=== PATIENT | female | born 1950 | race Caucasian/White ===

== ENCOUNTER 2018-02-06 12:00 | Emergency (ER) | payer OTHER ==
[~2018-02-06] VITALS: Ht 154.9 cm; Wt 51.7 kg
[2018-02-06 12:43] LABS: BASOPHILS ABSOLUTE AUTO 0.04 K/mm3 (0.00-0.23); BASOPHILS PERCENT AUTO 1 % (0-2); EOSINOPHILS ABSOLUTE AUTO 0.35 K/mm3 (0.00-0.68); EOSINOPHILS PERCENT AUTO 5 % (0-6); Hematocrit 40.3 % (33.0-51.0); Hemoglobin 12.9 g/dL (11.5-16.0); IMMATURE GRAN ABSOLUTE AUTO 0.03 K/mm3 (0.00-0.10); IMMATURE GRAN PERCENT AUTO 0 % (0-1); LYMPHOCYTES ABSOLUTE AUTO 2.41 K/mm3 (0.84-5.20); LYMPHOCYTES PERCENT AUTO 32 % (21-46); MONOCYTES ABSOLUTE AUTO 0.61 K/mm3 (0.16-1.47); MONOCYTES PERCENT AUTO 8 % (4-13); Mean Corpuscular HGB 30.2 pg (26.0-34.0); Mean Corpuscular Volume 94 fL (80-100); NEUTROPHILS ABSOLUTE AUTO 4.12 K/mm3 (1.96-9.15); NEUTROPHILS PERCENT AUTO 55 % (41-73); Platelet Count 307 K/mm3 (150-400); RDW Coefficient Variation 12.8 % (11.7-14.2); RDW Standard Deviation 44.1 fL (35.1-46.3); Red Blood Cell Count 4.27 M/mm3 (3.80-5.20); White Blood Cell Count 7.56 K/mm3 (4.00-11.30)
[2018-02-06 12:56] LABS: Albumin/Globulin Ratio 0.8 (0.8-1.8); Bilirubin, Total 0.2 mg/dL (0.1-1.0); Bun/Creatinine Ratio 22.1 (12.0-20.0); Calcium, Blood 8.9 mg/dL (8.5-10.1); Creatinine, Blood 0.99 mg/dL (0.40-1.00); Globulin, Blood 3.8 g/dL (2.2-4.0); Total Protein, Blood 6.8 g/dL (6.4-8.2)
[2018-02-06] MEDS ORDERED: Synthroid/Lev0.05 MG PO (13:05)
[2018-02-06] MEDS ORDERED: MONT10T PO (13:06)
[2018-02-06] MEDS ORDERED: Sudogest30 MG PO (13:07)
[2018-02-06 13:11] LABS: Appearance, Urine Clear (Clear); Bilirubin, Urine Neg (Neg); Blood, Urine Neg (Neg); Color, Urine Yellow (P-Yellow); Glucose Qualitative, Urine Neg (Neg); Ketones, Urine Neg (Neg); Leukocyte Esterase, Urine Neg (Neg); Nitrite, Urine Neg (Neg); Protein, Urine Neg (Neg); Specific Gravity, Urine 1.015 (1.003-1.022); Urobilinogen, Urine NORM (Normal)
== END 2018-02-06 14:17 | disposition home or self-care (01) ==
LOC: ER 12:00
PROVIDERS: Emergency Medicine
DX: K52.9 Noninfective gastroenteritis and colitis, unspecified (principal); Z87.891 Personal history of nicotine dependence; Z88.0 Allergy status to penicillin; Z91.013 Allergy to seafood; Z79.899 Other long term (current) drug therapy
CPT/HCPCS: 36415; 80053; 81003; 82607; 82746; 83516; 83690; 85025; 99283

== ENCOUNTER → 2018-02-07 | Outpatient (CLI) | payer OTHER ==
[~2018-02-07] MED LIST: MONT10T PO; Sudogest30 MG PO; Synthroid/Lev0.05 MG PO
[2018-02-08 11:06] LABS: Adenovirus F 40/41 Not Detected (NOT DETECT); Astrovirus Not Detected (NOT DETECT); Campylobacter Sp Not Detected (NOT DETECT); Cryptosporidium Not Detected (NOT DETECT); Cyclospora Cayetanensis Not Detected (NOT DETECT); E. Coli O157 Not Detected (NOT DETECT); Entamoeba Histolytica Not Detected (NOT DETECT); Enteroaggregative E. coli-EAEC Not Detected (NOT DETECT); Enteropathogenic E. coli-EPEC Not Detected (NOT DETECT); Enterotoxigenic E. coli-ETEC Not Detected (NOT DETECT); Giardia Lamblia Not Detected (NOT DETECT); Norovirus GI/GII Not Detected (NOT DETECT); Plesiomonas Shigelloides Not Detected (NOT DETECT); Rotavirus A Not Detected (NOT DETECT); Salmonella Sp Not Detected (NOT DETECT); Sapovirus Not Detected (NOT DETECT); Shiga Toxin-prod E. coli-STEC Not Detected (NOT DETECT); Shigella/Enteroin E. coli-EIEC Not Detected (NOT DETECT); Vibrio Cholerae Not Detected (NOT DETECT); Vibrio Sp Not Detected (NOT DETECT); Yersinia Enterocolitica Not Detected (NOT DETECT)
== END ==
LOC: LAB 10:55
PROVIDERS: Emergency Medicine
DX: R19.7 Diarrhea, unspecified (principal)
CPT/HCPCS: 87507

== ENCOUNTER → 2019-10-24 | Outpatient (CLI) | payer OTHER ==
[2019-10-28 14:06] LABS: HPV 16 Negative (Negative); HPV 18 Negative (Negative); HPV OTHER HR TYPES Negative (Negative)
== END | disposition home or self-care (01) ==
LOC: LAB SHORT 13:38 → LAB 13:38
PROVIDERS: Obstetrics & Gynecology
DX: Z01.419 Encounter for gynecological examination (general) (routine) without abnormal findings (principal)
CPT/HCPCS: 87624; G0123

== ENCOUNTER → 2021-06-08 | Outpatient (CLI) | payer OTHER | END | disposition home or self-care (01) | LOC: LAB 08:13 → LAB SHORT 08:13 | DX: D22.39 Melanocytic nevi of other parts of face (principal); L57.0 Actinic keratosis | CPT/HCPCS: 88305 ==

== ENCOUNTER 2021-10-03 12:21 | Emergency (ER) | payer OTHER ==
[~2021-10-03] VITALS: Ht 154.9 cm; Wt 53.5 kg
[2021-10-03 13:19] LABS: BASOPHILS ABSOLUTE AUTO 0.06 K/mm3 (0.00-0.23); BASOPHILS PERCENT AUTO 1 % (0-2); EOSINOPHILS ABSOLUTE AUTO 0.19 K/mm3 (0.00-0.68); EOSINOPHILS PERCENT AUTO 2 % (0-6); Hematocrit 40.3 % (33.0-51.0); Hemoglobin 13.1 g/dL (11.5-16.0); IMMATURE GRAN ABSOLUTE AUTO 0.03 K/mm3 (0.00-0.10); IMMATURE GRAN PERCENT AUTO 0 % (0-1); LYMPHOCYTES PERCENT AUTO 29 % (21-46); MONOCYTES ABSOLUTE AUTO 0.65 K/mm3 (0.16-1.47); MONOCYTES PERCENT AUTO 8 % (4-13); Mean Corpuscular HGB 30.3 pg (26.0-34.0); Mean Corpuscular HGB Conc 32.5 g/dL (31.5-36.5); Mean Corpuscular Volume 93 fL (80-100); Mean Platelet Volume 10.2 fL (9.1-12.4); NEUTROPHILS ABSOLUTE AUTO 4.84 K/mm3 (1.96-9.15); NEUTROPHILS PERCENT AUTO 59 % (41-73); Platelet Count 253 K/mm3 (150-400); RDW Coefficient Variation 12.4 % (11.7-14.2); RDW Standard Deviation 42.7 fL (35.1-46.3); Red Blood Cell Count 4.33 M/mm3 (3.80-5.20); White Blood Cell Count 8.17 K/mm3 (4.00-11.30)
[2021-10-03 13:20] LABS: Source, Urine Clean Catch
[2021-10-03 13:32] LABS: Appearance, Urine Clear (Clear); Bilirubin, Urine Neg (Neg); Blood, Urine Neg (Neg); Color, Urine Yellow (P-Yellow); Glucose Qualitative, Urine Neg (Neg); Ketones, Urine Neg (Neg); Leukocyte Esterase, Urine 1+ (Neg); Nitrite, Urine Neg (Neg); Protein, Urine Neg (Neg); Specific Gravity, Urine 1.015 (1.003-1.022); Urobilinogen, Urine NORM (Normal)
[2021-10-03 13:48] LABS: Bacteria Few /hpf; Red Blood Cells, Urine 0-2 /hpf (0-2); Squamous Epithelial Cells Few /hpf (Few); White Blood Cells, Urine 0-2 /hpf (0-5)
[2021-10-03 13:50] LABS: Alanine Aminotransfer (ALT/SGP 21 U/L (12-78); Albumin, Blood 3.5 g/dL (3.4-5.0); Alk Phos 103 U/L (50-136); Anion Gap 5 mmol/L (6-16); Aspartate Aminotrans (AST/SGOT 16 U/L (12-37); Bilirubin, Total 0.3 mg/dL (0.1-1.0); Blood Urea Nitrogen 22 mg/dL (8-24); Bun/Creatinine Ratio 21.8 (12.0-20.0); CO2, Blood 28 mmol/L (21-32); Calcium, Blood 9.2 mg/dL (8.5-10.1); Chloride, Blood 107 mmol/L (98-108); Creatinine, Blood 1.01 mg/dL (0.40-1.00); Globulin, Blood 3.4 g/dL (2.2-4.0); Glomerular Filtration Rate 54 (60-); Glucose, Blood 103 mg/dL (70-99); Potassium, Blood 4.5 mmol/L (3.5-5.5); Sodium, Blood 140 mmol/L (136-145); Total Protein, Blood 6.9 g/dL (6.4-8.2); Troponin I <0.015 ng/mL (0.000-0.040)
[2021-10-03] MEDS ORDERED: METPRE4DP PO ×2 (17:02→17:24)
== END 2021-10-03 17:24 | disposition home or self-care (01) ==
LOC: ER 12:21
PROVIDERS: Physician Assistant
DX: M54.10 Radiculopathy, site unspecified (principal); R07.89 Other chest pain; Z88.0 Allergy status to penicillin; Z91.013 Allergy to seafood; Z79.899 Other long term (current) drug therapy
CPT/HCPCS: 36415; 74176; 76705; 80053; 81001; 83690; 84484; 85025; 87086; 93005; 93010; 99285-25

== ENCOUNTER → 2022-04-12 | Outpatient (CLI) | payer OTHER ==
[~2022-04-12] MED LIST changes: +METPRE4DP PO
== END | disposition home or self-care (01) ==
LOC: LAB SHORT 14:44 → PLD 14:44
DX: D22.39 Melanocytic nevi of other parts of face (principal)
CPT/HCPCS: 88305

== ENCOUNTER 2023-06-27 10:52 | Day surgery (SDC) | payer OTHER ==
[2023-06-27] VITALS (10 sets, daily range): BP systolic 133–181; BP diastolic 59–119
[~2023-06-27] VITALS: Ht 154.9 cm; Wt 56.0 kg
[~2023-06-27 10:52] MED LIST changes: +ALBU90OI INH; +ATOR40TA PO; +Aspir 8181 MG PO; +EUTHYROX125 MCG PO; +HYDHCL25 PO; +IBUP800 PO; +LEVOTHYROXINE PO; +LOSA50 PO; +OMEPRAZOLE20 M1 PO; +ONDA4 PO; +PERM5TC TOP; +TRAZ50 PO
--- NOTE | 2023-06-27 15:05 | NUR ---
patient arrived to recovery room post procedure in recliner.A&O. denies pain. TR band i place no hematoma, no bleeding.
[2023-06-27] MEDS ORDERED: CLOP75 PO (15:43)
--- NOTE | 2023-06-27 16:34 | NUR ---
REMOVAL OF AIR FROM tr BAND STARTED. SITE REMAINS CLEAR OF HEMATOMA OR BLEEDIN
--- NOTE | 2023-06-27 17:45 | NUR ---
Dr De La Rosa in to speak to patient about procedure
--- NOTE | 2023-06-27 18:00 | NUR ---
patient verbalized understanding of discharge instructions and precautions. TR band removed site without hematoma or bleeding. cloth dot placed and wrist board placed. no further questions. patient discahrged home via wheelchair to waiting car. cousin driving.
== END 2023-06-27 22:52 | disposition home or self-care (01) ==
LOC: MHTC 10:52
DX: I77.1 Stricture of artery (principal); G45.8 Other transient cerebral ischemic attacks and related syndromes; I10 Essential (primary) hypertension; E03.9 Hypothyroidism, unspecified; K21.9 Gastro-esophageal reflux disease without esophagitis; Z88.0 Allergy status to penicillin; Z91.013 Allergy to seafood
CPT/HCPCS: 37236; 37246; 37252; 75605; 75710; 76937; 99152; 99153; C1725; C1753; C1769; C1876; C1887; C1894; J1644; J2250; J2405; J3010; J7030; J7050; Q9967

== ENCOUNTER → 2023-10-17 | Outpatient (CLI) | payer OTHER ==
[~2023-10-17] MED LIST changes: +CIPR500 PO; +CLOP75 PO; +LORA10ER PO; +METR500 PO; +Percocet 5-3251 EACH PO; +TIOT18 INH; +VISBIOME 112.51 EACH PO
[2023-10-17 10:21] LABS: BASOPHILS ABSOLUTE AUTO 0.02 K/mm3 (0.00-0.23); BASOPHILS PERCENT AUTO 0 % (0-2); EOSINOPHILS ABSOLUTE AUTO 0.17 K/mm3 (0.00-0.68); EOSINOPHILS PERCENT AUTO 3 % (0-6); Hematocrit 36.5 % (33.0-51.0); Hemoglobin 11.4 g/dL (11.5-16.0); IMMATURE GRAN ABSOLUTE AUTO 0.01 K/mm3 (0.00-0.10); IMMATURE GRAN PERCENT AUTO 0 % (0-1); LYMPHOCYTES ABSOLUTE AUTO 1.33 K/mm3 (0.84-5.20); LYMPHOCYTES PERCENT AUTO 25 % (21-46); MONOCYTES ABSOLUTE AUTO 0.66 K/mm3 (0.16-1.47); MONOCYTES PERCENT AUTO 12 % (4-13); Mean Corpuscular HGB 28.6 pg (26.0-34.0); Mean Corpuscular HGB Conc 31.2 g/dL (31.5-36.5); Mean Corpuscular Volume 92 fL (80-100); Mean Platelet Volume 10.5 fL (9.1-12.4); NEUTROPHILS ABSOLUTE AUTO 3.17 K/mm3 (1.96-9.15); NEUTROPHILS PERCENT AUTO 59 % (41-73); Platelet Count 241 K/mm3 (150-400); RDW Coefficient Variation 13.7 % (11.7-14.2); RDW Standard Deviation 46.1 fL (35.1-46.3); Red Blood Cell Count 3.98 M/mm3 (3.80-5.20); White Blood Cell Count 5.36 K/mm3 (4.00-11.30)
[2023-10-17 10:35] LABS: Albumin, Blood 3.4 g/dL (3.4-5.0); Bilirubin, Total 0.2 mg/dL (0.1-1.0); Bun/Creatinine Ratio 28.4 (12.0-20.0); Calcium, Blood 8.9 mg/dL (8.5-10.1); Creatinine, Blood 1.02 mg/dL (0.40-1.00); Globulin, Blood 3.5 g/dL (2.2-4.0); Total Protein, Blood 6.9 g/dL (6.4-8.2)
== END ==
LOC: LAB 09:21 → LAB SHORT 09:21
PROVIDERS: Student in an Organized Health Care Education/Training Program
DX: R10.84 Generalized abdominal pain (principal); R19.7 Diarrhea, unspecified; I95.9 Hypotension, unspecified; E03.9 Hypothyroidism, unspecified; Z90.49 Acquired absence of other specified parts of digestive tract
CPT/HCPCS: 80053; 84443; 85025

== ENCOUNTER → 2023-10-18 | Outpatient (CLI) | payer OTHER ==
[2023-10-18 19:10] LABS: Adenovirus F 40/41 Not Detected (NOT DETECT); Astrovirus Not Detected (NOT DETECT); Campylobacter Sp Not Detected (NOT DETECT); Cryptosporidium Not Detected (NOT DETECT); Cyclospora Cayetanensis Not Detected (NOT DETECT); E. Coli O157 Not Detected (NOT DETECT); Entamoeba Histolytica Not Detected (NOT DETECT); Enteroaggregative E. coli-EAEC Not Detected (NOT DETECT); Enteropathogenic E. coli-EPEC Not Detected (NOT DETECT); Enterotoxigenic E. coli-ETEC Not Detected (NOT DETECT); Giardia Lamblia Not Detected (NOT DETECT); Norovirus GI/GII Not Detected (NOT DETECT); Plesiomonas Shigelloides Not Detected (NOT DETECT); Rotavirus A Not Detected (NOT DETECT); Salmonella Sp Not Detected (NOT DETECT); Sapovirus Not Detected (NOT DETECT); Shiga Toxin-prod E. coli-STEC Not Detected (NOT DETECT); Shigella/Enteroin E. coli-EIEC Not Detected (NOT DETECT); Vibrio Cholerae Not Detected (NOT DETECT); Vibrio Sp Not Detected (NOT DETECT); Yersinia Enterocolitica Not Detected (NOT DETECT)
== END | disposition home or self-care (01) ==
LOC: LAB SHORT 04:02 → LAB 04:02
PROVIDERS: Student in an Organized Health Care Education/Training Program
DX: I95.9 Hypotension, unspecified (principal); R10.84 Generalized abdominal pain; R19.7 Diarrhea, unspecified; Z90.49 Acquired absence of other specified parts of digestive tract
CPT/HCPCS: 87507

== ENCOUNTER → 2023-11-27 | Outpatient (CLI) | payer OTHER | LOC: LAB 15:19 → LAB SHORT 15:19 | DX: D22.39 Melanocytic nevi of other parts of face (principal); L81.4 Other melanin hyperpigmentation; R23.4 Changes in skin texture | CPT/HCPCS: 88305 ==

== ENCOUNTER 2024-08-07 06:41 | Inpatient (IN) | payer OTHER ==
[2024-08-07] VITALS (30 sets, daily range): BP systolic 102–167; BP diastolic 53–127
[~2024-08-07] VITALS: Ht 151 cm; Wt 55.5 kg
[~2024-08-07 06:41] MED LIST changes: +CeFAZolin Sodium 2,000 MG in NS 100 ML IV SCH; +Lactated Ringer's 1,000 ML IV SCH
[2024-08-07] MEDS ORDERED: Acetaminophen 500 MG Tab PO ONE (07:15)
[2024-08-07] MEDS ORDERED: Gabapentin 300 MG Cap PO ONE (07:15)
[2024-08-07] MEDS ORDERED: Bupivacaine 0.5% HCl 5 MG/ML 30MLVIAL ONE (07:43)
[2024-08-07] MEDS ORDERED: Ipratropium/Albuterol SulF 2.5-0.5MG/3 ML Amp INH ONE (07:50)
[2024-08-07] MEDS ORDERED: Rocuronium Bromide 10 MG/ML 5ML Injection IV ONE ×2 (07:53→09:25)
[2024-08-07] MEDS ORDERED: FentaNYL Citrate 50 MCG/ML 2 ML Injection ONE (07:53)
[2024-08-07] MEDS ORDERED: Lidocaine HCl 2% 20 ML MDV ONE (07:53)
[2024-08-07] MEDS ORDERED: propofoL 20 ML IV ONE (07:53)
[2024-08-07] MEDS ORDERED: Dexamethasone Sod Phos 10 MG/ML 1ML VIAL ONE (08:38)
[2024-08-07] MEDS ORDERED: ePHEDrine Sulfate 50 MG/ML 1ML Injection ONE (08:43)
--- NOTE | 2024-08-07 09:09 | NUR ---
08/07/24 0909 Danita Mccoy EPIDURAL PLACED BY DR. BUI
[2024-08-07] MEDS ORDERED: Bupivacaine HCl 0.25% 30 ML Injection ONE (09:25)
[2024-08-07] MEDS ORDERED: ePHEDrine Sulfate 50 MG/ML 1ML Injection IV SCH (09:30)
[2024-08-07] MEDS ORDERED: Ondansetron HCl 2 MG / ML 2ML Vial IV PRN ×2 (09:35→12:05)
[2024-08-07] MEDS ORDERED: Morphine Sulfate 4 MG/1 ML Injection IV PRN (09:35)
[2024-08-07] MEDS ORDERED: Naloxone HCl 0.4MG / ML 1ML Vial IV PRN (09:35)
[2024-08-07] MEDS ORDERED: Ketorolac Tromethamine 15mg Vial IV PRN (09:45)
[2024-08-07] MEDS ORDERED: Ondansetron HCl 2 MG / ML 2ML Vial ONE ×2 (10:25→12:29)
[2024-08-07] MEDS ORDERED: Sugammadex Sodium 200 MG/2ML SDV (100 MG/ML) ONE (10:34)
[2024-08-07] MEDS ORDERED: OxyCODONE HCL 5 MG TAB PO PRN (12:05)
[2024-08-07] MEDS ORDERED: Acetaminophen 325 MG TABLET PO PRN (12:05)
[2024-08-07] MEDS ORDERED: HYDROmorphone HCl/Pf 1MG SYR IV PRN (12:05)
[2024-08-07] MEDS ORDERED: FLU VACC TS2024-25(6MOS UP)/PF 45 MCG/0.5 ML SYRINGE IM SCH (12:05)
[2024-08-07] MEDS ORDERED: Lactated Ringer's 1,000 ML IV SCH (12:05)
[2024-08-07] MEDS ORDERED: Morphine Sulfate 4 MG/1 ML Injection ONE (12:20)
[2024-08-07] MEDS ORDERED: Metoclopramide HCl 5MG / ML 2ML Vial ONE (12:22)
--- NOTE | 2024-08-07 13:16 | NUR ---
PT ARRIVED TO ROOM VIA HOSPITAL BED. A&O X4, VSS, PPP. DERMATOME AT T7. ABLE TO WIGGLE TOES BUT NOT FEEL SENSATION CURRENTLY. ABD INCISION COVERED WITH PERMEABLE TAPE, GAUZE, AND ABDOMINAL BINDER. C/D/I. BED IN LOWEST POSITION, CALL LIGHT WITHIN REACH.
[2024-08-07] MEDS ORDERED: Pregabalin 50 MG Capsule PO SCH (16:00)
--- NOTE | 2024-08-07 18:31 | NUR ---
SHIFT SUMMARY POD 0 OPEN HERNIA REPAIR. MIDLINE INCISION COVERED WITH PERMEABLE TAPE, GAUZE, AND ABD BINDER. MIN SANG DRAINAGE ON GAUZE. C/D/I. PT ON ROOM AIR WITH O2 SATS >92%. EPI SETTINGS PER ANESTHESIA RX. DOORKEEPER AND CALL LIGHT WITHIN REACH, VSS, A&O X4. CAN WIGGLE TOES BUT DOESNT HAVE MUCH FEELING. CAP REFILL <3 SEC. PPP. EATING/DRINKING WITHOUT DIFFICULTY.
[2024-08-08] VITALS (18 sets, daily range): BP systolic 111–179; BP diastolic 53–84
--- NOTE | 2024-08-08 05:49 | NUR ---
NOC SUMMARY- PT DISCOMFORT HAS BEEN O- 5 THROUGHOUT SHIFT. PT HAS BEEN ABLE TO NAP BETWEEN VS. PT EPIDURAL DRESSING IS C/D/I. PT ABD DRESSING HAS SOME SCANT SHADOWING BUT IS DRY AND INTACT. PT MCKEON DRAINING TO GRAVITY. CALL LIGHT IN REACH.
--- NOTE | 2024-08-08 16:58 | NUR ---
REQUESTED EPIDURAL PAUSE SURGERY REQUESTED EPIDURAL BE STOPPED FOR 30 MINUTES AFTER ANESTHESIA ROUNDED ON THE PATIENT. DISCUSSED THIS WITH ANESTHESIA WHO STATED THAT WITH THE NATURE OF THE SURGERY AND THIS SOON AFTER SURGERY IT WOULD NOT BE ADVISABLE IT WOULD HAVE TO BE TURNED BACK ON TO HELP MANAGE THE ENSUING PAIN. DISCUSSED THIS WITH THE PATIENT AND ULTIMATELY DID NOT ATTEMPT TO PAUSE THE EPIDURAL.
[2024-08-08] MEDS ORDERED: TraZODone HCl 50 MG Tab PO PRN (17:15)
--- NOTE | 2024-08-08 19:49 | NUR ---
SHIFT SUMMARY POD1 OPEN ABD HERNIA REPAIR, A/OX4, VSS, TOLERAATING REGULAR DIET, PAIN WELL MANAGED WITH EPIDURAL AND PO LYRICA, DERMATONE CHECKS SHOW SENSATION DOWN TO T10. SHE IS ABLE TO AMBULAT IN THE ROOM WITH SVA GETTING UP TO THE CHAIR TOAY AND AMBULATING TO THE BATHROOM. SHE REPORTS SIGNIFICANT HALLUCINATIONS USIN NARCOTICS AND OES NOT WANT TO TAKE THEM WHEN THE EPIDURLA IS REMOVED. DISCUSSED ULTRAM WITH HER SHE HAS NOT TAKING THIS MEDICATION AND IS MORE MILD THAN PRIOR OPIOIDS SHE HAS TAKEN. ENCOURAGED HER TO DISCUSS WITH MD IN CASE PAIN IS AN ISSUE WHEN EPIDURAL IS REMOVED. NO ACUTE EVVENTS TODAY, CALL LIGHT IN REACH.
--- NOTE | 2024-08-08 22:01 | NUR ---
EPIDURAL EPIDURAL SITE WNL. PT REPORTS DECREASED SENSATION ON RIGHT SIDE OF TORSO AND RIGHT UPPER OUTER THIGH/HIP. FULL SENSATION ON LEFT SIDE. VITALS STABLE.
[2024-08-09] VITALS (10 sets, daily range): BP systolic 119–140; BP diastolic 55–93
--- NOTE | 2024-08-09 04:53 | NUR ---
SHIFT SUMMARY PT HAS RESTED MOST OF THE NIGHT. PT REPORTED SOME PAIN TO LEFT LOWER ABD EARLIER IN THE SHIFT (03/07). MEDICAITED FOR BREAKTHROUGH PAIN WITH IV TORADOL. AFTER IV TORADOL, PT DENIED PAIN FOR THE REST OF THE SHIFT. EPIDURAL IN PLACE. NO ACUTE NEURO CHANGES NOTED WITH Q4HR EPIDURAL CHECKS. PT AMBULATING AND VOIDING. EPIDURAL SITE WNL. VITALS STABLE. SURGICAL SITE WNL. BED IN LOWEST POSITION, CALL LIGHT WITHIN REACH.
[2024-08-09] MEDS ORDERED: Levothyroxine Sodium 0.125 MG Tab PO SCH ×2 (06:00)
[2024-08-09] MEDS ORDERED: Losartan Potassium 50 MG Tab PO SCH ×2 (09:00)
[2024-08-09] MEDS ORDERED: Aspirin 81 MG Chew PO SCH (09:00)
[2024-08-09] MEDS ORDERED: Loratadine 10 MG Tab PO SCH (09:00)
--- NOTE | 2024-08-09 19:41 | NUR ---
SHIFT SUMMARY PT IS POD#2 FROM HERNIA REPAIR. PAIN MANAGED WITH EPIDURAL. PT IS A SBA WHEN OOB. PT TOLERATING PO REGULAR DIET. VSS. PT USES CALL LIGHT APPROPRIATELY. BEDSIDE REPORT GIVEN TO ROSEMARY BERNARDO.
[2024-08-10] VITALS: BP 132/59
[2024-08-10 04:10] VITALS: BP 149/62
[2024-08-10 04:12] VITALS: BP 149/62
[2024-08-10 07:36] VITALS: BP 146/64
--- NOTE | 2024-08-10 08:30 | NUR ---
SHIFT SUMMARY NOC. PT S/P VENTRAL HERNIA REPAIR WITH MESH. PT MIDLINE ABDOMINAL INCISION C/D/I. ABDOMINAL BINDER IN PLACE. EPIDERAL SITE SECURED AND INFUSING. PT TOLERATING PO AND VOIDING URINE. PT MEDICATED FOR BREAKTHROUGH X1 WITH REPORTED RELIEF. CALL LIGHT IN REACH.
--- NOTE | 2024-08-10 12:24 | NUR ---
DR. BUI ROUNDED AND REMOVED EPIDURAL AT APPROXIMATELY 1130. PT TOLERATED WELL. PT REPORTS SHE HAS MINIMAL ABD PAIN. PT EDUCATED TO NOTIFY THIS RN IF PAIN INCREASES.
[2024-08-10] MEDS ORDERED: TraMADol HCl 50 MG Tab PO PRN (14:45)
[2024-08-10 15:10] VITALS: BP 162/65
--- NOTE | 2024-08-10 18:55 | NUR ---
SHIFT SUMMARY PT IS POD#3. EPIDURAL DC'D, PAIN MANAGED WITH TYLENOL, TRAMADOL AND TORADOL. PT IS INDEPENDENT IN THE ROOM. PT TOLERATING PO. VSS. PT USES CALL LIGHT APPROPRIATELY.
[2024-08-10 19:38] VITALS: BP 175/62
[2024-08-11 05:44] VITALS: BP 134/59
[2024-08-11 07:39] VITALS: BP 170/63
--- NOTE | 2024-08-11 08:48 | NUR ---
SUMMARY PT VERB ADEQUATE PAIN CONTROL,NO NAUSEA AT THIS TIME,VOIDING WITHOUT DIFF,VERB HOPING FOR DISCHARGE TODAY.
[2024-08-11 14:51] VITALS: BP 157/68
[2024-08-11] MEDS ORDERED: ACET325 PO (15:49)
[2024-08-11] MEDS ORDERED: TRAM50 PO (15:49)
--- NOTE | 2024-08-11 16:18 | NUR ---
DISCHARGE SUMMARY POD 4 EX LAP c TAE. DC'd HOME. DISCHARGE INSTRUCTION GIVEN, PT VERBALIZES UNDERSTANDING. TOLERATING ORALS. VOIDING. IND AMB. ALL PERSONAL BELONGINGS c PT. 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 PT REPORTS PAIN TOLERABLE c ORAL MEDICATIONS. IV REMOVED. D/C VIA WHEELCHAIR TO POV, DRIVEN BY FRIEND.
== END 2024-08-11 16:20 | disposition home or self-care (01) | DRG 337 ==
LOC: SURS 06:41 → PRE IP 08:00 → SURS 12:57
PROVIDERS: ADMIT Surgery
PROC: 0DNU0ZZ Release Omentum, Open Approach (ICD-10-PCS; 2024-08-07)
PROC: 0WUF0JZ Supplement Abdominal Wall with Synthetic Substitute, Open Approach (ICD-10-PCS; principal; 2024-08-07 08:00)
DX: K43.2 Incisional hernia without obstruction or gangrene (principal); K21.9 Gastro-esophageal reflux disease without esophagitis; E03.9 Hypothyroidism, unspecified; I10 Essential (primary) hypertension; J44.9 Chronic obstructive pulmonary disease, unspecified; I48.91 Unspecified atrial fibrillation; K66.0 Peritoneal adhesions (postprocedural) (postinfection); Z88.1 Allergy status to other antibiotic agents; Z88.0 Allergy status to penicillin; Z91.013 Allergy to seafood; Z98.890 Other specified postprocedural states; Z79.82 Long term (current) use of aspirin; Z79.890 Hormone replacement therapy; Z79.899 Other long term (current) drug therapy; Z87.891 Personal history of nicotine dependence; Z90.49 Acquired absence of other specified parts of digestive tract; Z95.5 Presence of coronary angioplasty implant and graft
CPT/HCPCS: 94760; 94762; A9270; C1781; J0690; J1100; J1885; J2270; J2405; J2704; J2765; J3010; J7050; J7120

== ENCOUNTER → 2025-07-27 | Outpatient (CLI) | payer OTHER ==
[~2025-07-27] MED LIST changes: +ACET325 PO; -CeFAZolin Sodium 2,000 MG in NS 100 ML IV SCH; -Lactated Ringer's 1,000 ML IV SCH; +TRAM50 PO
[2025-07-27 20:47] LABS: CHOL/HDL RATIO 4.7; Cholesterol 257 mg/dL (50-200); HDL Cholesterol 55 mg/dL (>39); LDL/HDL RATIO 3.1; Low Density Lipoprotein Chol 171 mg/dL (0-110); Triglycerides 155 mg/dL (30-160); Very Low Density Lipoprot Chol 31 mg/dL (6-32)
== END ==
LOC: LAB SHORT 20:16 → LAB 20:16
PROVIDERS: Student in an Organized Health Care Education/Training Program
DX: E78.2 Mixed hyperlipidemia (principal)
CPT/HCPCS: 80061